=== PATIENT | female | born 1945 | race Caucasian/White ===

== ENCOUNTER 2016-10-11 17:52 | Observation (INO) ==
[2016-10-11] MEDS ORDERED: SODIUM CHLORIDE 0.9% 500 ML IV STA (18:18)
[2016-10-11] MEDS ORDERED: MEROPENEM 1,000 MG in SODIUM CHLORIDE 0.9% 100 ML IV STA (18:18)
[2016-10-11] MEDS ORDERED: HYDROmorphone 2 MG/1 ML VIAL IV STA (18:20)
[2016-10-11] MEDS ORDERED: ONDANSETRON 4 MG/2 ML VIAL IV STA (18:20)
--- NOTE | 2016-10-11 18:24 | Emergency Department Note ---
Arrival - Arrival Chief Complaint: Fever Stated Complaint: [place] PA/FEVER ED Nursing Triage Note: Pt c/o fever and sore throat since last night 102.8. Chemo on Last Thursday. Mode of Arrival: Wheelchair Limitations: No Limitations Source: Patient Time Seen by Provider: 10/11/16 18:18 - History of Present Illness HPI Narrative: This 70-year-old white female patient of Dr. Gallagher'beka with lung cancer currently treated with radiation daily and chemotherapy with her last treatment 5 days ago presents with one-week of temperature between 100 and 101 associated with loose bowel movements and progressive sore throat. She states what precipitated her visit today was a spike in her temperature to 102 last night as well as significant pain on swallowing. At no time as she had chest pain or shortness of breath in association with this situation. Currently she is alert and oriented 3 and medically stable. Onset (ago): week(s) (Patient presents with one-week of symptoms) Allergies/Adverse Reactions: Allergies Allergy/AdvReac Type Severity Reaction Status Date / Time No Known Allergies Allergy Verified 07/03/16 06:15 Home Medications: Home Medications Medication Instructions Recorded Confirmed Type Atorvastatin [Lipitor] 5 mg PO BEDTIME 06/30/16 10/11/16 History Cyclobenzaprine HCl 5 mg PO QID 06/30/16 10/11/16 History Empagliflozin/Metformin HCl 1 each PO BID 06/30/16 10/11/16 History [Synjardy 12.5-1,000 mg Tablet] HYDROcodone/ACETAMIN 10-325 [[place] 1 tablet PO TID 06/30/16 10/11/16 History 10-325] Morphine ER Tab [Ms Contin] 30 mg PO BID 06/30/16 10/11/16 History Pregabalin [Lyrica] 100 mg PO TID 06/30/16 10/11/16 History amLODIPine [Norvasc] 10 mg PO QAM 06/30/16 10/11/16 History Ondansetron Tab [Zofran Tab] 8 mg PO Q8HR PRN 08/24/16 10/11/16 History Calcium Carbonate/Vitamin D3 2 each PO QAM 10/11/16 10/11/16 History [Calcium 600 + Vit D Tablet] Pantoprazole Tab [Protonix Tab] 40 mg PO BID 10/11/16 10/11/16 History Review of System - Review of System 12 point system: reviewed and no additional remarkable complaints except as stated - Review of System Constitutional: Present: as per HPI Head/Ears/Nose/Throat: Present: see HPI Respiratory: Present: as per HPI Cardiovascular: Present: as per HPI Gastrointestinal: Present: as per HPI Medical,Surgical,& Family Hx - Medical History Cardio: History of: Hypertension Neurology: History of: Peripheral Neuropathy No history of: Seizures HEENT: History of: Dental Problems (FULL SET DENTURES) Endocrine: History of: Diabetes Mellitus (NIDDM), Dyslipidemia Respiratory: History of: Lung Cancer No history of: Respiratory Problems (FLU VAC-YES; PNEU VAC-YES. CHEST CONGESTION. RT LUNG MASS.) Gastrointestinal: History of: GERD, Gastrointestinal Bleed (X2), GI Problems ( BOWEL COMPLICATIONS AFTER CHOLECYSTECTOMY.) Musculoskeletal: History of: Back/Neck Problems (BACK PAIN. DR DAVALOS. BACK INJ 2 MONTHS AGO) - Surgical History HEENT Surgeries: Surgical HX of: Tonsilectomy & Adenoidectomy Abdominal Surgeries: Surgical HX of: Abdominal Surgery, Cholecystectomy Reproductive Surgeries: Surgical HX of;: Tubal Ligation - Social History Smoking Status: Former smoker Exam Physical Examination: GENERAL: Pale chronically ill-appearing white female in no acute distress. HEENT: Normocephalic. No trauma. Moist mucous membranes. EOMI. PERRLA. ENT NML, retropharynx is not injected whatsoever NECK: Supple. Cervical adenopathy. CARDIAC: Regular. No murmurs. Heart rate 100 CHEST: Clear to auscultation. No respiratory distress. O2 sat 94% ABDOMEN: Soft. Midepigastric tenderness. Active bowel sounds. EXTREMITIES: No trauma. Normal ROM. No pedal edema. SKIN: No diaphoresis. No rash. NEURO: Alert. Neuro intact. No focal deficits. Vital Signs: Vital Signs Temperature 99.9 F H 10/11/16 18:05 Pulse Rate 90 10/11/16 18:05 Respiratory Rate 20 10/11/16 18:05 Blood Pressure 118/87 10/11/16 18:05 O2 Sat by Pulse Oximetry 95 10/11/16 18:05 Course - Consultations Consultation #1: Discussed with Dr. Abbott will see the patient in the emergency room for further evaluation and treatment. Results - Labs CBC & BMP: 10/11/16 18:31 10/11/16 18:31 Labs: I have reviewed the laboratory and noted the low white blood cell count and hematocrit. Also noted was a negative rapid strep. - Diagnostic Findings Procedure: Chest x-ray: image reviewed by me, report reviewed by me (Reduction in size of right hilar mass but persistence of right middle lobe atelectasis.) Disposition Clinical Impression: Right middle lobe infiltrate/atelectasis, Radiation-induced esophagitis, Lung cancer Case discussed with: patient, patient's family Disposition: Still a Patient Condition: Guarded Time of Disposition: 20:17
--- NOTE | 2016-10-11 18:37 | XRay Report ---
XR chest 2V Date: 10/11/2016 6:19 PM History: Fever, shortness of breath Comparison: 08/24/2016 Technique: PA and lateral chest Findings: The heart is normal in size with stable right subclavian venous access catheter. Smaller right hilar mass with reduced adjacent parenchymal findings. Calcified granulomata/nodes with degenerative changes. Prior cholecystectomy. Impression: Significant reduction in the size of the right hilar mass with reduced adjacent parenchymal findings in patient with known carcinoma of the lung. Residual atelectasis especially in the right middle lobe. PROCEDURE INTERPRETED AT [facility] DEPARTMENT OF RADIOLOGY Final Report Signed by: Dr. Frances Kumar
[2016-10-11 18:55] LABS: Basophils % 0.4 % (0.0-0.8); Eosinophils # 0.1 10*3/uL (0.0-0.87); Eosinophils % 1.1 % (0.00-10.9); Hematocrit 30.4 VOL% (35.7-47.0); Hemoglobin 10.2 GM/DL (12.0-16.0); Immature Granulocytes % 0.9 %; Immature Granulocytes Absolute 0.04 #; Lymphocytes # 0.7 10*3/uL (1.4-4.0); Lymphocytes % 15.6 % (21.3-54.2); Mean Corpuscular HGB Conc 33.6 GM/DL (32-36); Mean Corpuscular Hemoglobin 33 PG (27-34); Mean Corpuscular Volume 99.3 FL (87-102); Mean Platelet Volume 9.4 FL (9.6-12.0); Monocytes # 0.4 10*3/uL (0.11-0.8); Monocytes % 9.4 % (1.7-12.7); Neutrophils # 3.4 10*3/uL (1.4-7.4); Neutrophils % 72.6 % (38.7-73.9); Platelet Count 171 T/CUMM (130-400); Red Blood Count 3.06 MC/CUMM (3.8-5.5); Red Cell Distribution Width 17.4 % (9.3-17.3); White Blood Count 4.7 T/CUMM (4-12)
[2016-10-11 18:58] LABS: INR 0.9; PT Patient Result 9.9 SECS
[2016-10-11 19:14] LABS: Alanine Aminotransferase 21 U/L (13-56); Albumin 3.2 G/DL (3.4-5.0); Alkaline Phosphatase 107 U/L (45-117); Aspartate Amino Transferase 11 U/L (0-37); Bilirubin,Total < 0.39 MG/DL (0.2-1.0); Blood Urea Nitrogen 15 MG/DL (7-18); Glucose 153 MG/DL (74-106); Osmolality,Calculated 276.8 MOS/KG (273-304); Sodium 137 MMOL/L (136-145); Total Protein 6.2 G/DL (6.4-8.3)
[2016-10-11] MEDS ORDERED: ALBUTEROL/IPRATROPIUM 3 ML NEB RESP TX STA (19:24)
[2016-10-11 19:32] LABS: Apearance,Urine Slightly Hazy (Clear); Bacteria,Urine Many /HPF (Few); Bilirubin,Urine Negative (Negative); Blood, Urine Small mg/dL (Negative); Glucose,Urine (UA) >=500 mg/dL (Negative); Ketones,Urine Negative (Negative); Mucus,Urine Occasional /LPF (Occasional); Nitrite,Urine Negative (Negative); Protein,Urine Negative; RBC,Urine 2 /HPF (0-4); Squamous Epithelial Cell,Urine Occasional /HPF (0-10); Urine Color Yellow (Yellow); Urine Specific Gravity 1.011 (1.001-1.035); Urine Urobilinogen < 2.0 EU/DL (0.2-1.0); WBC,Urine 110 /HPF (0-6)
[2016-10-11] MEDS ORDERED: MEROPENEM 1,000 MG VIAL IV ONE (19:32)
[2016-10-11] MEDS ORDERED: ONDANSETRON 4 MG/2 ML VIAL ONE (19:33)
[2016-10-11] MEDS ORDERED: SODIUM CHLORIDE 0.9% 100 ML IV ONE (19:33)
[2016-10-11] MEDS ORDERED: HYDROmorphone 2 MG/1 ML VIAL ONE (19:33)
[2016-10-11] MEDS ORDERED: guaiFENesin 200 MG/10 ML UDCUP PO PRN (20:22)
[2016-10-11] MEDS ORDERED: GLUCAGON 1 MG VIAL IM PRN (20:22)
[2016-10-11] MEDS ORDERED: MAGNESIUM HYDROXIDE SUSP 30 ML UDCUP PO PRN (20:22)
[2016-10-11] MEDS ORDERED: DEXTROSE 50% 25 GM/50 ML SYRINGE IV PRN (20:22)
[2016-10-11] MEDS ORDERED: ONDANSETRON 4 MG/2 ML VIAL IV PRN (20:22)
[2016-10-11] MEDS ORDERED: LOPERAMIDE 2 MG CAPSULE PO PRN (20:22)
[2016-10-11] MEDS ORDERED: ACETAMINOPHEN 325 MG TABLET PO PRN (20:22)
[2016-10-11] MEDS ORDERED: ALUMINUM/MAGNES/SIMETH MAX STR 30 ML UDCUP PO PRN (20:22)
[2016-10-11] MEDS ORDERED: diphenhydrAMINE CAP 25 MG CAPSULE PO PRN (20:22)
--- NOTE | 2016-10-11 20:34 | Oncology History&Physical ---
Assessment and Plan (1) Fever Status: Acute Assessment and plan: Experiencing high fevers repeatedly the last several days. Other than the dysphagia and odynophagia, her symptoms remain quite vague. Suspect that she has either radiation-induced esophagitis vs infectious esophagitis vs UTI vs pneumonia -UA certainly suggestive of infection, though only UTI symptom is increased frequency (and fever if truly attributable to this) -cultured in the ER. Will admit to observation. Will start Vancomycin 15 mg/kg with pharmacy to assist with dosing and Levaquin 500 mg daily -will wean as indicated Current Visit: Yes (2) Dysphagia Status: Acute Assessment and plan: Suspected radiation-induced vs infectious esophagitis. -- start Stomatitis #2 Q4H Current Visit: Yes (3) UTI (urinary tract infection) Status: Acute Assessment and plan: > 100 WBCs with large leuk esterase but nitrite negative and only symptom is increased frequency - culture drawn. Levaquin will likely cover any likely urinary source Current Visit: Yes (4) Radiation-induced esophagitis Status: Acute Assessment and plan: As above. May have to consider EGD if suspicion for infectious esophagitis increases Current Visit: Yes (5) Pneumonia Status: Acute Assessment and plan: CXR with questionable infiltrate vs atelectasis in the RML - antibiotics as above Current Visit: Yes (6) Small cell lung cancer Status: Acute Assessment and plan: Limited stage per initial PET/CT. Sounds as though she didn't tolerate Cis/VP16 and is now on a weekly regimen (?Carbo/Irinotecan vs other). - patient states she has completed planned fractions of RT - will request records from Dr. Gallagher's office. Will f/u with Dr. Gallagher after discharge Current Visit: Yes (7) Diarrhea Status: Acute Assessment and plan: Chemotherapy induced vs infectious - unclear whether on a weekly irinotecan containing regimen as she couldn't tolerate Cis/VP16. - send C.diff. If negative, can start anti-diarrheals Current Visit: Yes History of Present Illness Chief complaint: fever, dysphagia/odynophagia History of present illness: Mrs. Schmidt is a 70 year old undergoing concurrent chemo/RT under Dr. Gallagher who presented to the ER with fever. Patient's actually called the MD check-in line earlier today to report a fever of 102.8 and I directed them to the ER. She was diagnosed with a right middle bronchus small cell lung cancer with mediastinal adenopathy in July,, by mediastinoscopy. I don't have access to her clinic notes at present and patient is unsure the name of her chemo, but it sounds as though she completed one full cycle of (presumably) Cisplatin/VP16 and then had to have the therapy reduced to the just two days in the second cycle. This was still too toxic, and she was switched to a weekly chemotherapy regimen (unknown chemo) with RT. She has now completed two cycles of weekly chemo and 9 fractions of RT. She has been having intense odynophagia and some dysphagia, particularly deep in the mid to distal esophagus. She does not have trouble or pain initiating swallowing. This has caused her to avoid most solid foods. She feels she is getting liquids down without trouble. Denies cough, chest pain or dyspnea with exertion. States she has been having intermittent fevers for the last several days. Has measured temps at home of 100.5, 101.2, and 101.5 each of the last several days. These fevers have resolved with Tylenol. Today, she felt feverish and measured a temp to 102.8, thus prompting this evaluation. She denies abdominal pain, nausea, suprapubic and flank pain, and dysuria. Does feel like she has been urinating frequently. Also c/o of diarrhea since starting the weekly chemotherapy. Has not had any diarrhea today. Home Medications Medication Instructions Recorded Confirmed Type Atorvastatin [Lipitor] 5 mg PO BEDTIME 06/30/16 10/11/16 History Cyclobenzaprine HCl 5 mg PO QID 06/30/16 10/11/16 History Empagliflozin/Metformin HCl 1 each PO BID 06/30/16 10/11/16 History [Synjardy 12.5-1,000 mg Tablet] HYDROcodone/ACETAMIN 10-325 [[place] 1 tablet PO TID 06/30/16 10/11/16 History 10-325] Morphine ER Tab [Ms Contin] 30 mg PO BID 06/30/16 10/11/16 History Pregabalin [Lyrica] 100 mg PO TID 06/30/16 10/11/16 History amLODIPine [Norvasc] 10 mg PO QAM 06/30/16 10/11/16 History Ondansetron Tab [Zofran Tab] 8 mg PO Q8HR PRN 08/24/16 10/11/16 History Calcium Carbonate/Vitamin D3 2 each PO QAM 10/11/16 10/11/16 History [Calcium 600 + Vit D Tablet] Pantoprazole Tab [Protonix Tab] 40 mg PO BID 10/11/16 10/11/16 History Allergies Allergy/AdvReac Type Severity Reaction Status Date / Time No Known Allergies Allergy Verified 07/03/16 06:15 Medical,Surgical,& Family Hx - Medical History Cardio: History of: Hypertension No history of: CHF, CAD Neurology: History of: Peripheral Neuropathy No history of: Seizures HEENT: History of: Dental Problems (FULL SET DENTURES) Endocrine: History of: Diabetes Mellitus (NIDDM), Dyslipidemia Respiratory: History of: Lung Cancer No history of: Respiratory Problems (FLU VAC-YES; PNEU VAC-YES. CHEST CONGESTION. RT LUNG MASS.) Gastrointestinal: History of: GERD, Gastrointestinal Bleed (reported diverticulosis), GI Problems (BOWEL COMPLICATIONS AFTER CHOLECYSTECTOMY.) Musculoskeletal: History of: Back/Neck Problems (BACK PAIN. DR DAVALOS. BACK INJ 2 MONTHS AGO) - Surgical History HEENT Surgeries: Surgical HX of: Tonsilectomy & Adenoidectomy Abdominal Surgeries: Surgical HX of: Abdominal Surgery, Cholecystectomy Reproductive Surgeries: Surgical HX of;: Tubal Ligation Additional Surgical History: Mediastinoscopy - Family History Family History: Reports;: Family Cancer (Mother had breast cancer; sister with brain cancer) - Social History Smoking Status: Former smoker (started age 18. Smoked 2+ ppd most of adult life. Quit at lung cancer diagnosis) - Constitutional Constitutional: Present: fatigue, fever(s), malaise, weight loss - EENT Eye: Absent: blurry vision, loss of vision Nose, mouth and throat: Present: dysphagia, odynophagia - Cardiovascular Cardiovascular ROS IM: Absent: chest pain, orthopnea, palpitations - Respiratory Respiratory: Absent: cough, dyspnea, hemoptysis - Gastrointestinal Gastrointestinal: Present: diarrhea. Absent: hematochezia, melena, nausea - Genitourinary Genitourinary ROS female: Present: urinary frequency. Absent: dysuria, flank pain, hematuria - Musculoskeletal Musculoskeletal ROS: Present: arthralgias, back pain - Neurological Neurological ROS: Absent: focal weakness, headache(s) - Psychiatric Psychiatric General: Absent: anxiety, depression - Hematologic/Lymphatic Hematologic/Lymphatic: Absent: easy bleeding, easy bruising Exam - Constitutional Vitals: Period Temp Pulse Resp BP Sys/[place] Pulse Ox Last 24 Hr 98.7 F-99.9 F 90-103 20-20 118-133/87-88 94-95 Exam: Elderly white female, lying back in bed, appears comfortable - Head Head Exam: Present: normocephalic, atraumatic - Eye Eye Exam: Present: other (pink palpebral conjunctiva). Absent: scleral icterus - ENT ENT exam: Present: other (edentulous. No evidence of oropharyngeal mucositis or thrush) - Neck Neck exam: Absent: lymphadenopathy - Respiratory Respiratory exam: Present: other (normal rate and effort on room air without conversational dyspnea; CTA anteriorly) - Cardiovascular Cardiovascular exam: Present: RRR. Absent: JVD - GI/Abdominal GI/Abdominal exam: Present: soft. Absent: distended, tenderness - Extremities Exam Extremities exam: Absent: calf tenderness, edema - Neurological Exam Neurological exam: Present: alert, CN II-XII intact - Psychiatric Psychiatric exam: Present: normal affect, normal mood - Skin Skin exam: Present: warm, dry. Absent: petechiae, rash Results - Labs CBC & BMP: 10/11/16 18:31 10/11/16 18:31
[2016-10-11 20:58] LABS: Eosinophils 2 % (0-10); Lymphocytes 14 % (20-55); Platelet Estimate Decreased; Polychromasia Slight; Segmented Neutrophils 79 % (50-85); Total Cells Counted 100
[2016-10-11] MEDS ORDERED: ENOXAPARIN 40 MG/0.4 ML SYRINGE SUBCUT SCH (21:00)
[2016-10-11] MEDS ORDERED: LEVOFLOXACIN INJ 500 MG in PREMIX 1 EACH IV SCH (22:00)
[2016-10-11] MEDS: LACTATED RINGERS 1,000 ML IV SCH (22:13)
[2016-10-11] MEDS ORDERED: VANCOMYCIN INJ 1,250 MG in SODIUM CHLORIDE 0.9% 250 ML IV SCH (23:00)
[2016-10-11] MEDS: INSULIN LISPRO 100 UNIT/ML SUBCUT SCH (23:13)
[2016-10-11] MEDS: MYLANTA/LIDO VISC 2:1 300 ML BOTTLE SWISH/SWAL SCH (23:56)
[2016-10-12] MEDS: MYLANTA/LIDO VISC 2:1 300 ML BOTTLE SWISH/SWAL SCH ×4 (03:47→13:17)
[2016-10-12 06:29] LABS: Basophils % 0.3 % (0.0-0.8); Eosinophils # 0.1 10*3/uL (0.0-0.87); Eosinophils % 1.8 % (0.00-10.9); Hematocrit 27.4 VOL% (35.7-47.0); Hemoglobin 9.1 GM/DL (12.0-16.0); Immature Granulocytes % 0.6 %; Immature Granulocytes Absolute 0.02 #; Lymphocytes # 0.9 10*3/uL (1.4-4.0); Lymphocytes % 25.4 % (21.3-54.2); Mean Corpuscular HGB Conc 33.2 GM/DL (32-36); Mean Corpuscular Hemoglobin 33 PG (27-34); Mean Corpuscular Volume 98.9 FL (87-102); Mean Platelet Volume 9.7 FL (9.6-12.0); Monocytes # 0.4 10*3/uL (0.11-0.8); Monocytes % 10.8 % (1.7-12.7); Neutrophils # 2.1 10*3/uL (1.4-7.4); Neutrophils % 61.1 % (38.7-73.9); Platelet Count 162 T/CUMM (130-400); Red Blood Count 2.77 MC/CUMM (3.8-5.5); Red Cell Distribution Width 17.2 % (9.3-17.3); White Blood Count 3.4 T/CUMM (4-12)
[2016-10-12 07:02] LABS: Albumin 2.6 G/DL (3.4-5.0); Bilirubin,Total 0.7 MG/DL (0.2-1.0); Calcium 8.4 MG/DL (8.5-10.1); Magnesium 2.1 MG/DL (1.8-2.4); Osmolality,Calculated 282.1 MOS/KG (273-304); Potassium 3.8 MMOL/L (3.5-5.1); Total Protein 5.4 G/DL (6.4-8.3)
[2016-10-12 07:33] LABS: Band Neutrophils 5 % (0-10); Eosinophils 3 % (0-10); Hypochromasia 1+; Lymphocytes 27 % (20-55); Ovalocytes Slight; Platelet Estimate Normal; Segmented Neutrophils 59 % (50-85); Total Cells Counted 100
[2016-10-12] MEDS: NYSTATIN 500,000 UNIT/5 ML UDCUP SWISH/SWAL SCH ×2 (08:27→13:17)
[2016-10-12] MEDS: SUCRALFATE 1 GM/10 ML UDCUP PO SCH ×2 (08:27→10:59)
[2016-10-12] MEDS: CYCLOBENZAPRINE 10 MG TABLET PO SCH ×2 (08:28→13:17)
[2016-10-12] MEDS: INSULIN LISPRO 100 UNIT/ML SUBCUT SCH ×2 (08:30→12:44)
[2016-10-12] MEDS: LACTATED RINGERS 1,000 ML IV SCH (08:36)
[2016-10-12] MEDS ORDERED: MORPHINE ER 30 MG TABLET PO SCH (09:00)
[2016-10-12] MEDS ORDERED: PANTOPRAZOLE 40 MG TABLET PO SCH (09:00)
[2016-10-12] MEDS ORDERED: PREGABALIN 100 MG CAPSULE PO SCH (09:00)
[2016-10-12] MEDS ORDERED: EMPAGLIFLOZIN PO SCH (09:00)
[2016-10-12] MEDS ORDERED: [UNRECOGNIZED DRUG - OTHER] PO SCH (09:00)
[2016-10-12] MEDS ORDERED: METFORMIN HCL PO SCH (09:00)
[2016-10-12] MEDS ORDERED: amLODIPine 10 MG TABLET PO SCH (09:00)
--- NOTE | 2016-10-12 09:33 | XRay Report ---
Exam: XR hip 2V LT Date: 10/11/2016 9:34 PM Comparison: None Indication: Left hip pain after fall Technique:[AP and frog-leg left hip] Findings: Minimal sclerosis and osteophytes. No fracture or dislocation. Impression: Minimal DJD with no fracture or dislocation. Vascular calcifications are noted. PROCEDURE INTERPRETED AT [facility] DEPARTMENT OF RADIOLOGY Final Report Signed by: Dr. Frances Kumar
--- NOTE | 2016-10-12 09:34 | XRay Report ---
Exam: XR knee 2V LT Date: 10/11/2016 9:34 PM Comparison: None Indication: Knee pain after fall Technique:[AP and lateral left knee] Findings: Soft tissue swelling with small knee joint effusion. Joint space narrowing especially the medial compartment and patellofemoral space. Sclerosis with subchondral cysts and osteophytes. Soft tissue and vascular calcifications with small metallic densities. No acute fracture or dislocation. Impression: Moderate DJD with small knee joint effusion. No fracture or dislocation. Soft tissue and vascular calcifications with small metallic densities in the soft tissues. PROCEDURE INTERPRETED AT [facility] DEPARTMENT OF RADIOLOGY Final Report Signed by: Dr. Frances Kumar
[2016-10-12 10:58] VITALS: BP 114/68
[2016-10-12] MEDS ORDERED: CIPROFLOXACIN 500 MG TABLET PO ONE (10:58)
--- NOTE | 2016-10-12 11:14 | Discharge Summary ---
Hospital Course - Hospital Course Hospital Course: Mrs. 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 Gallagher. She presented to the hospital with several days of fevers and severe sore throat. Additionally, she was experiencing urinary frequency, suprapubic discomfort, and a sensation of incomplete voiding that was overshadowed by her tremendously sore throat. She was not experiencing any other infectious symptomatology. She was admitted for hydration and broad IV antibiotics initially. She nearly immediately defervesced after starting antibiotics. She feels remarkably better after starting Stomatitis for her throat and was able to eat her breakfast without difficulty. Urinalysis suggested UTI and urine culture confirmed UTI with 100k CFU of a not- yet-identified Gram negative jose. She is not experiencing any flank pain. Discussed cystitis and the need for continued antibiotics with the patient. At this point, feel that she can safely take PO antibiotics and has reached the maximum benefit of this hospitalization. Patient is agreeable. Will discharge on Ciprofloxacin 500 mg twice daily for 10 days. Instructed patient to follow up with Dr. Gallagher as planned tomorrow and to verify the susceptibility of the GNR causing the UTI. - Time spent with patient Time with patient DS: Less than 30 minutes Diagnosis - Discharge Diagnosis (1) Fever Status: Acute (2) UTI (urinary tract infection) Status: Acute (3) Dysphagia Status: Acute (4) Radiation-induced esophagitis Status: Acute (5) Small cell lung cancer Status: Acute (6) Diarrhea Status: Acute Specialty Discharge - Follow Up or Referrals Follow up with: Remi Gallagher MD [Physician] - (Follow up with Dr. Gallagher as scheduled...ask about urine culture before they give your chemo treatment.) Desmond Kramer MD [Physician] - (Continue radiation as scheduled.) - Speciality Discharge Instructions Oncology Instructions: Start using the Stomatitis (Mylanta/Viscous Xylocaine) swish and swallow solution 15 mL up to every 4 hours as needed for the sore throat. Fore the UTI, start taking Ciprofloxacin 500 mg twice daily for 10 more days. Follow up with Dr. Gallagher's office tomorrow to ensure that this antibiotic works for this particular bacteria in your urine. Follow up with both Dr. Gallagher and Dr. Kramer to discuss resuming treatment Discharge Plan - Discharge Data Disposition: Disch To Home/Self Care Condition at Discharge: Stable Discharge Diet: advance to your usual diet Activity: resume usual activities as tolerated Hygiene: no restrictions Weight Bearing at Discharge: full weight bearing Driving: no restrictions Contact your physician if you experience:: fever over 101, Difficulty voiding, Nausea/Vomiting, pain uncontrolled by pain medications - Discharge Medications New Ciprofloxacin Tab [Cipro Tab] 500 mg PO BID #20 tablet Continue Empagliflozin/Metformin HCl [Synjardy 12.5-1,000 mg Tablet] 1 each PO BID HYDROcodone/ACETAMIN 10-325 [[place] 10-325] 1 tablet PO TID Atorvastatin [Lipitor] 5 mg PO BEDTIME Morphine ER Tab [Ms Contin] 30 mg PO BID Cyclobenzaprine HCl 5 mg PO QID Ondansetron Tab [Zofran Tab] 8 mg PO Q8HR PRN PRN Reason: Nausea/Vomiting Pregabalin [Lyrica] 100 mg PO TID Calcium Carbonate/Vitamin D3 [Calcium 600 + Vit D Tablet] 2 each PO QAM Pantoprazole Tab [Protonix Tab] 40 mg PO BID amLODIPine [Norvasc] 10 mg PO QAM #30 - Follow Up or Referral Follow Up: Remi Gallagher MD [Physician] - (Follow up with Dr. Gallagher as scheduled...ask about urine culture before they give your chemo treatment.) Desmond Kramer MD [Physician] - (Continue radiation as scheduled.) - Forms/Instructions Instructions: Urinary Tract Infection in Women (DC) Exam - Constitutional Vitals: Period Temp Pulse Resp BP Sys/[place] Pulse Ox Last 24 Hr 97.2 F-99.9 F 84-103 18-20 114-163/68-90 92-100 Exam: Elderly white female, lying back in bed comfortably. - Head Head exam: Present: atraumatic, other (Notable chemo-induced alopecia) - Eye Eye exam: Present: other (pink palpebral conjunctiva). Absent: scleral icterus - ENT ENT exam: Present: other (edentulous with otherwise normal OP without evidence of thrush or mucositis) - Respiratory Respiratory exam: Present: other (normal rate and effort on RA without conversational dyspnea or stridor. CTAB. Resonant at bases) - Cardiovascular Cardiovascular exam: Present: regular rate and rhythm. Absent: JVD - GI/Abdominal GI/Abdominal exam: Present: normal bowel sounds, soft. Absent: tenderness - Extremities Exam Extremities exam: Present: other (mild pedal edema). Absent: calf tenderness - Back Exam Back exam: Absent: CVA tenderness (L), CVA tenderness (R) (has some mild discomfort to palpation of the suprapubic region. Does not seem to have a distended bladder) - Neurological Exam Neurological exam: Present: alert, CN II-XII intact - Psychiatric Psychiatric exam: Present: normal affect, normal mood - Skin Skin exam: Present: warm, dry Discharge Results Procedures and tests throughout hospitalization: Pending Orders 10/11/16 18:31 Urine Culture Stat 10/11/16 19:00 Blood Culture Stat 10/11/16 20:23 Urinalysis Routine 10/11/16 20:51 C. difficile Toxin PCR, F Routine Labs on day of discharge: Labs from last 24 hours 10/12/16 10/12/16 10/12/16 10:56 08:21 04:04 WBC 3.4 L RBC 2.77 L Hgb 9.1 L Hct 27.4 L MCV 98.9 MCH 33 MCHC 33.2 RDW 17.2 Plt Count 162 MPV 9.7 Neut % (Auto) 61.1 Lymph % (Auto) 25.4 [place] % (Auto) 10.8 Eos % (Auto) 1.8 Baso % (Auto) 0.3 Neut # (Auto) 2.1 Lymph # (Auto) 0.9 L [place] # (Auto) 0.4 Eos # (Auto) 0.1 Baso # (Auto) 0.0 Total Counted 100 Immature Gran % 0.6 Nucleated RBC % 0.0 Immature Gran # 0.02 Segmented Neutrophils 59 Band Neutrophils 5 Lymphocytes 27 Monocytes 6 Eosinophils 3 Nucleated RBCs # 0.00 Platelet Estimate Normal Immature Plt Fraction 0.0 Polychromasia Hypochromasia 1+ Ovalocytes Slight INR PT Patient/Control Mix Sodium Potassium Chloride Carbon Dioxide Anion Gap BUN Creatinine GFR Calculation BUN/Creatinine Ratio Glucose POC Glucose 163 H 179 H Calculated Osmolality Calcium Magnesium Total Bilirubin AST ALT Alkaline Phosphatase Total Protein Albumin Globulin Albumin/Globulin Ratio Urine Color Urine Appearance Urine pH Ur Specific [place] Urine Protein Urine Glucose (UA) Urine Ketones Urine Blood Urine Nitrate Urine Bilirubin Urine Urobilinogen Urine Leukocytes Urine RBC Urine WBC Ur Squamous Epith Cells Urine Bacteria Urine Mucus Ur Culture Indicated? 08/10/11/16 10/11/16 04:04 22:37 22:32 WBC RBC Hgb Hct MCV MCH MCHC RDW Plt Count MPV Neut % (Auto) Lymph % (Auto) [place] % (Auto) Eos % (Auto) Baso % (Auto) Neut # (Auto) Lymph # (Auto) [place] # (Auto) Eos # (Auto) Baso # (Auto) Total Counted Immature Gran % Nucleated RBC % Immature Gran # Segmented Neutrophils Band Neutrophils Lymphocytes Monocytes Eosinophils Nucleated RBCs # Platelet Estimate Immature Plt Fraction Polychromasia Hypochromasia Ovalocytes INR PT Patient/Control Mix Sodium 142 Potassium 3.8 Chloride 107 Carbon Dioxide 30 Anion Gap 8.8 BUN 11 Creatinine 0.50 L GFR Calculation 113 BUN/Creatinine Ratio 22.00 H Glucose 117 H POC Glucose 167 H < 20 L* Calculated Osmolality 282.1 Calcium 8.4 L Magnesium 2.1 Total Bilirubin 0.70 AST 36 ALT 25 Alkaline Phosphatase 109 Total Protein 5.4 L Albumin 2.6 L Globulin 2.8 Albumin/Globulin Ratio 0.9 L Urine Color Urine Appearance Urine pH Ur Specific [place] Urine Protein Urine Glucose (UA) Urine Ketones Urine Blood Urine Nitrate Urine Bilirubin Urine Urobilinogen Urine Leukocytes Urine RBC Urine WBC Ur Squamous Epith Cells Urine Bacteria Urine Mucus Ur Culture Indicated? 10/11/16 10/11/16 10/11/16 18:31 18:31 18:31 WBC RBC Hgb Hct MCV MCH MCHC RDW Plt Count MPV Neut % (Auto) Lymph % (Auto) [place] % (Auto) Eos % (Auto) Baso % (Auto) Neut # (Auto) Lymph # (Auto) [place] # (Auto) Eos # (Auto) Baso # (Auto) Total Counted Immature Gran % Nucleated RBC % Immature Gran # Segmented Neutrophils Band Neutrophils Lymphocytes Monocytes Eosinophils Nucleated RBCs # Platelet Estimate Immature Plt Fraction Polychromasia Hypochromasia Ovalocytes INR 0.9 PT Patient/Control Mix 9.9 Sodium 137 Potassium 4.0 Chloride 102 Carbon Dioxide 29 Anion Gap 10.0 BUN 15 Creatinine 0.70 GFR Calculation 101 BUN/Creatinine Ratio 21.00 H Glucose 153 H POC Glucose Calculated Osmolality 276.8 Calcium 9.0 Magnesium Total Bilirubin < 0.39 AST 11 ALT 21 Alkaline Phosphatase 107 Total Protein 6.2 L Albumin 3.2 L Globulin 3.0 Albumin/Globulin Ratio 1.0 L Urine Color Yellow Urine Appearance Slightly hazy Urine pH 6.0 Ur Specific [place] 1.011 Urine Protein Negative Urine Glucose (UA) >=500 Urine Ketones Negative Urine Blood Small Urine Nitrate Negative Urine Bilirubin Negative Urine Urobilinogen < 2.0 H Urine Leukocytes Large H Urine RBC 2 Urine WBC 110 Ur Squamous Epith Cells Occasional Urine Bacteria Many Urine Mucus Occasional Ur Culture Indicated? Results to follow 10/11/16 18:31 WBC 4.7 RBC 3.06 L Hgb 10.2 L Hct 30.4 L MCV 99.3 MCH 33 MCHC 33.6 RDW 17.4 H Plt Count 171 MPV 9.4 L Neut % (Auto) 72.6 Lymph % (Auto) 15.6 L [place] % (Auto) 9.4 Eos % (Auto) 1.1 Baso % (Auto) 0.4 Neut # (Auto) 3.4 Lymph # (Auto) 0.7 L [place] # (Auto) 0.4 Eos # (Auto) 0.1 Baso # (Auto) 0.0 Total Counted 100 Immature Gran % 0.9 Nucleated RBC % 0.0 Immature Gran # 0.04 Segmented Neutrophils 79 Band Neutrophils Lymphocytes 14 L Monocytes 5 Eosinophils 2 Nucleated RBCs # 0.00 Platelet Estimate Decreased Immature Plt Fraction 0.0 Polychromasia Slight Hypochromasia Ovalocytes INR PT Patient/Control Mix Sodium Potassium Chloride Carbon Dioxide Anion Gap BUN Creatinine GFR Calculation BUN/Creatinine Ratio Glucose POC Glucose Calculated Osmolality Calcium Magnesium Total Bilirubin AST ALT Alkaline Phosphatase Total Protein Albumin Globulin Albumin/Globulin Ratio Urine Color Urine Appearance Urine pH Ur Specific [place] Urine Protein Urine Glucose (UA) Urine Ketones Urine Blood Urine Nitrate Urine Bilirubin Urine Urobilinogen Urine Leukocytes Urine RBC Urine WBC Ur Squamous Epith Cells Urine Bacteria Urine Mucus Ur Culture Indicated? Preliminary micro results at discharge 10/11/16 18:31 Urine Culture - Preliminary Urine,Clean Catch Gram Negative Rods DS: Provider Date of admission: 10/11/16 20:22 Primary care physician: Victor Manuel Barragan Attending physician on admission: Remi Gallagher MD Consults: 10/11/16 20:31 Consult to Pharmacy [CONS] Routine Reason for Pharmacy Consult: Dose/Manage Vancomycin Discharging clinician: Phu Abbott MD Expected date of discharge: 10/12/16
[2016-10-12] MEDS ORDERED: HEPARIN LOCK FLUSH 500 UNIT/5 ML SYRINGE IV PRN (12:58)
== END 2016-10-12 13:30 | disposition home or self-care (01) ==
LOC: N.ED 17:52 → N.EDINP 17:52 → N.4E 21:06
PROVIDERS: ADMIT Specialist; ATTEND Specialist